=== PATIENT | female | born 1975 | race Caucasian/White ===

== ENCOUNTER 2018-01-10 11:44 | Emergency (ER) | payer OTHER ==
[~2018-01-10] VITALS: Ht 167.6 cm; Wt 108.9 kg
[~2018-01-10 11:44] MED LIST: ADVAIR 250-501 EACH; ALBUTEROL2.5 MG/31; NAPROSYN375 MG PO; OMEPRAZOLE; PROVENTIL; QUDEXY XR150 MG PO; TOPAMAX25 M1
[2018-01-10] MEDS ORDERED: CHANTIX0.5 MG PO (11:48)
[2018-01-10 12:06] LABS: ABSOLUTE EOSINOPHILS 0.1 thou/uL (0.0-0.7); ABSOLUTE MONOCYTES 0.5 thou/uL (0.0-1.2); ABSOLUTE NEUTROPHILS 4.6 thou/uL (1.6-8.1); BASOPHILS 0.4 %; EOSINOPHILS 1.4 %; HEMATOCRIT 50.7 % (37.0-47.0); HEMOGLOBIN 17.2 gm/dL (12.0-15.0); LYMPHOCYTES 28.1 %; MCH 31.5 pg (26.0-34.0); MCV 92.5 fL (80.0-100.0); MONOCYTES 6.7 %; MPV 9.2 fl. (7.2-11.1); NUCLEATED RBCS 0 /100WBC; PLATELET COUNT* 196 thou/uL (150-400); POLYS 63.4 %; RBC 5.48 mil/uL (4.20-5.00); RDW-CV 13.1 % (10.5-14.5); WBC 7.3 thou/uL (4.0-11.0)
[2018-01-10 12:17] LABS: ANION GAP 10 mmol/L (7-16); BUN 14 mg/dL (7-18); CALCIUM 9.2 mg/dL (8.5-10.1); CHLORIDE 103 mmol/L (98-107); CO2 25 mmol/L (21-32); GLUCOSE 164 mg/dL (70-99); POTASSIUM 4.1 mmol/L (3.5-5.1); SODIUM 138 mmol/L (136-145)
[2018-01-10 12:19] LABS: APTT 27.5 Seconds (25.0-31.3); PROTIME 10.2 Seconds (9.20-11.50)
[2018-01-10 12:36] LABS: ALKALINE PHOSPHATASE 80 U/L (46-116); CK-MB MASS 0.5 ng/mL (<0.5-3.6); LIPASE 291 U/L (73-393); MAGNESIUM 1.9 mg/dL (1.8-2.4); NT-PRO BRAIN NAT PEPTIDE 8 pg/mL (<300); SGOT 14 U/L (15-37); SGPT 47 U/L (30-65); TOTAL BILIRUBIN 0.7 mg/dL (<0.1-1.0); TOTAL PROTEIN 7.6 g/dL (6.4-8.2); TROPONIN-I LEVEL <0.06 ng/mL (<0.06)
[2018-01-10 13:10] VITALS: BP 125/74
--- NOTE | 2018-01-11 10:50 | EKG ---
[place] [address] ELECTROCARDIOGRAM REPORT Name: JOANNA ARCINIEGA Room: [facility]#: [id number] Admission: 01/10/18 Attend Phys: Discharge: 01/10/18 Date of : 77 Report #: [id number] THIS REPORT FOR: //name// [facility] ED Test Date: 2018-01-10 Test Time: 11:48:49 Pat Name: JOANNA ARCINIEGA Department: Room: Gender: F Medical Office Supervisor: josé miguel : 1975 Requested By: Kory Solis Order Number: [id number] MD: Eitan Mitchell Measurements Intervals [place] Rate: 97 P: 53 OR: 145 QRS: 24 QRSD: 79 T: 36 QT: 332 QTc: 422 Interpretive Statements Sinus rhythm Baseline wander in lead(s) I,II,aVR,aVF,V2,V3,V4 Compared to ECG 09/28/2016 22:51:26 no change Electronically Signed On 01-11-2018 10:50:32 CDT by Eitan Mitchell [email or web address] <ELECTRONICALLY SIGNED> By: Eitan Mitchell MD, [facility] 01/11/18 1050 [id number] [id number] Eitan Mitchell MD, [facility]EPI
== END 2018-01-10 13:11 | disposition home or self-care (01) ==
LOC: M.ERS 11:44
PROVIDERS: Family Medicine
DX: R07.9 Chest pain, unspecified (principal); J45.909 Unspecified asthma, uncomplicated; E11.9 Type 2 diabetes mellitus without complications; G43.909 Migraine, unspecified, not intractable, without status migrainosus